=== PATIENT | male | born 1985 | race Caucasian/White ===

== ENCOUNTER → 2017-05-18 | Outpatient (CLI) | payer OTHER ==
--- NOTE | 2017-05-18 17:30 | RADIOLOGY REPORT (SQ) ---
EXAM DESCRIPTION: U/S SCROTUM W/O DOPPLER COMPLETED DATE/TIME: 05/18/2017 4:48 pm REASON FOR STUDY: PAINFUL SCROTUM N50.82 SCROTAL PAIN COMPARISON: None. TECHNIQUE: Static and realtime joaquin scale imaging of the scrotum and testes. Selected color Doppler and spectral images recorded to document blood flow. LIMITATIONS: None. FINDINGS: RIGHT: TESTICLE: Normal size, 48 x 32 x 30 mm. Normal echotexture. Normal blood flow. No mass. EPIDIDYMIS: Normal. 14 x 16 x 10 mm. HYDROCELE OR VARICOCELE: No. HERNIA OR EXTRA-TESTICULAR MASS: No. OTHER: No other significant finding. LEFT: TESTICLE: Normal size, 48 x 32 x 28 mm. Normal echotexture. Normal blood flow. No mass. EPIDIDYMIS: 13 x 15 x 17 mm. There is a 9 x 6 x 7 mm epididymal cyst or spermatocele. HYDROCELE OR VARICOCELE: There is a small hydrocele measuring 11 mm. HERNIA OR EXTRA-TESTICULAR MASS: No. OTHER: No other significant finding. IMPRESSION: 1. Small left epididymal cyst or spermatocele. 2. Small left hydrocele. TECHNICAL DOCUMENTATION: JOB ID: [id number] [employer]- All Rights Reserved
== END ==
LOC: RAD 16:06
PROVIDERS: ATTEND Internal Medicine
DX: N50.82 Scrotal pain (principal); N43.3 Hydrocele, unspecified
CPT/HCPCS: 76870